=== PATIENT | female | born 1950 | race Asian ===

== ENCOUNTER 2023-04-24 04:08 | Day surgery (SDC) | payer OTHER ==
[2023-04-17 14:18] VITALS: BMI 27.4
[2023-04-24] MEDS ORDERED: BUPIVACAINE HCL/PF 0.5% (5MG/ML) 10 ML VIAL ONE (07:54)
[2023-04-24] MEDS ORDERED: PROPOFOL 20 ML ONE (09:42)
[2023-04-24] MEDS ORDERED: SUCCINYLCHOLINE CHLORIDE 200 MG/10 ML SYRINGE ONE (09:44)
[2023-04-24] MEDS ORDERED: ROCURONIUM BROMIDE 50 MG/5 ML SYRINGE ONE ×2 (09:45→10:34)
[2023-04-24] MEDS ORDERED: ceFAZolin SODIUM 1 GM VIAL ONE ×2 (09:58)
[2023-04-24] MEDS ORDERED: ONDANSETRON 4 MG/2 ML VIAL ONE ×2 (10:13→11:53)
[2023-04-24] MEDS ORDERED: SUGAMMADEX SODIUM 200 MG/2 ML VIAL ONE (10:53)
[2023-04-24] MEDS ORDERED: ONDANSETRON 4 MG/2 ML VIAL IVPUSH PRN (11:30)
[2023-04-24] MEDS ORDERED: oxyCODONE HCL 5 MG TABLET PO PRN (11:30)
[2023-04-24] MEDS ORDERED: LACTATED RINGERS SOLUTION 1,000 ML IV SCH (11:30)
[2023-04-24] MEDS ORDERED: ACETAMINOPHEN 1000 MG/100 ML BAG IVPB ONE ×2 (11:31→11:42)
[2023-04-24 14:48] VITALS: RESP 20
[2023-04-24] MEDS ORDERED: traMADol HCL 50 MG TABLET PO ONE (14:58)
[2023-04-24 18:03] VITALS: BP 145/68; PULSE 78; TEMP 97.2
== END 2023-04-24 17:00 | disposition home or self-care (01) ==
LOC: JASU-SURG 04:08
PROVIDERS: ATTEND Surgery
PROC: 0FT44ZZ Resection of Gallbladder, Percutaneous Endoscopic Approach (ICD-10-PCS; principal; 2023-04-24 10:20)
PROC: BF13YZZ Fluoroscopy of Gallbladder and Bile Ducts using Other Contrast (ICD-10-PCS; 2023-04-24 10:20)
DX: K80.20 Calculus of gallbladder without cholecystitis without obstruction (principal)
CPT/HCPCS: 76000-TC-FY; 82962; 88304-TC; 94760

== ENCOUNTER 2025-03-10 13:17 | Emergency (ER) | payer OTHER ==
[2025-03-10 13:34] VITALS: TEMP 98; BMI 26.6
[2025-03-10] MEDS ORDERED: ACETAMINOPHEN INJECTION 100 ML ONE (14:33)
[2025-03-10] MEDS ORDERED: ONDANSETRON 4 MG/2 ML VIAL ONE (14:33)
[2025-03-10 14:41] LABS: ABSOLUTE IMMATURE GRANULOCYTES 0.02 x10^3/uL (0.0-0.031); BASOPHILS # 0.05 x10^3/uL (0.01-0.08); EOSINOPHIL % 1.7 % (0.7-5.8); EOSINOPHILS # 0.15 x10^3/uL (0.04-0.36); MCHC 31.6 g/dl (32.2-35.5); MEAN CELL VOLUME 92.9 fl (79.4-94.8); MEAN PLT VOLUME 8.8 fl (9.4-12.3); MONOCYTE # 0.58 x10^3/uL (0.24-0.86); MONOCYTE % 6.5 % (4.7-12.5); RDW 12.7 % (12.4-16.6)
[2025-03-10] MEDS: ONDANSETRON 4 MG/2 ML VIAL IVPUSH ONE (14:42)
[2025-03-10] MEDS: ACETAMINOPHEN 1000 MG/100 ML BAG IVPB ONE (14:51)
[2025-03-10] MEDS: SODIUM CHLORIDE 0.9% 500 ML INFUS.BAG IV ONE (14:51)
[2025-03-10 14:54] LABS: URINE APPEARANCE CLEAR; URINE BILIRUBIN NEGATIVE (NEGATIVE); URINE COLOR YELLOW; URINE GLUCOSE (UA) 2+ (NEGATIVE); URINE KETONE NEGATIVE (NEGATIVE); URINE LEUK ESTERASE NEGATIVE (NEGATIVE); URINE NITRITE NEGATIVE (NEGATIVE); URINE PROTEIN NEGATIVE (NEGATIVE); URINE UROBILINOGEN 0.2 mg/dL (0.2-1.0)
[2025-03-10 15:06] LABS: CO2 25.0 mmol/L (21-32); GLUCOSE,RANDOM 79.0 mg/dL (74-106)
[2025-03-10 15:09] LABS: CREATININE 0.8 mg/dL (0.55-1.3); SGOT/AST 26.0 U/L (15-37); SGPT/ALT 39.0 U/L (13-61)
[2025-03-10 15:10] LABS: TOT PROT 7.1 g/dl (6.4-8.2)
[2025-03-10 15:12] LABS: ALK PHOS 82.0 U/L (45-117)
[2025-03-10 15:22] LABS: LACTIC ACID 2.6 mmol/L (0.4-2.0)
[2025-03-10 15:57] LABS: HCV DIAGNOSTIC IN-HOUSE W/RFLX NON-REACTIVE (NONREACTIVE)
[2025-03-10 15:59] LABS: HIV INTERPRETATION NEGATIVE (NEGATIVE)
[2025-03-10] MEDS ORDERED: IBUPROFEN 400 MG TABLET (FP) PO ONE (18:40)
[2025-03-10 18:44] VITALS: BP 114/50; PULSE 68; RESP 18
== END 2025-03-10 18:57 | disposition home or self-care (01) ==
LOC: JER 13:17
PROC: 3E033NZ Introduction of Analgesics, Hypnotics, Sedatives into Peripheral Vein, Percutaneous Approach (ICD-10-PCS; principal; 2025-03-10)
PROC: 3E033GC Introduction of Other Therapeutic Substance into Peripheral Vein, Percutaneous Approach (ICD-10-PCS; 2025-03-10)
DX: K57.32 Diverticulitis of large intestine without perforation or abscess without bleeding (principal); R10.32 Left lower quadrant pain; R11.2 Nausea with vomiting, unspecified
CPT/HCPCS: 36415; 74174-TC; 76705-TC; 80053; 81003; 82962; 83605; 83690; 83735; 84484; 85025; 86803; 87086; 87389; 93005; 93010; 99285-25; Q9967